=== PATIENT | female | born 1975 ===

== ENCOUNTER 2018-06-23 16:06 | Inpatient (IN) | payer OTHER ==
[~2018-06-23] VITALS: Ht 160 cm; Wt 51.3 kg
[2018-06-25] MEDS ORDERED: CODE1TAB37 PO (08:19)
[2018-06-25] MEDS ORDERED: DOXYCYCLINE HY100 MG PO (08:19)
== END 2018-06-25 11:19 | disposition home or self-care (01) | DRG 770 ==
LOC: LDR 16:06 → O/R 06-24 16:27 → SURG 06-24 18:48 → O/R 06-24 19:01 → SURG 06-24 19:02
PROVIDERS: Obstetrics & Gynecology
PROC: 3E0P7VZ Introduction of Hormone into Female Reproductive, Via Natural or Artificial Opening (ICD-10-PCS; 2018-06-24)
PROC: 10A07ZZ Abortion of Products of Conception, Via Natural or Artificial Opening (ICD-10-PCS; principal; 2018-06-24 15:00)
DX: Z33.2 Encounter for elective termination of pregnancy (principal); Q91.3 Trisomy 18, unspecified